=== PATIENT | male | born 1930 | race Caucasian/White ===

== ENCOUNTER 2016-10-25 23:15 | Inpatient (IN) | payer MEDICARE ==
--- NOTE | ~2016-10-25 | HP ---
History And Physical [address] [place]. [address] NAME: EFE PATEL : 29 STATUS : ADM IN PAT#: [id number] AGE: 85 ADM/REG DATE : 10/26/16 MR#: [id number] REPORT SERV DATE: 10/26/16 DICTATED BY: YOSEF CABEZAS DATE: 10/26/16 REPORT STATUS : Draft TRANSCRIBED BY: SILVIA DATE: 10/26/16 DATE OF ADMISSION: 10/26/2016 CHIEF COMPLAINT: Acute right knee pain status post two falls. HISTORY OF PRESENT ILLNESS: This is an 85-year-old male with a past medical history of atrial fibrillation, on chronic warfarin; hypothyroidism; also history of bradycardia, status post pacemaker, being followed by [facility]. The patient was ambulating in a parking lot and tripped over a parking space separator cement block and fell onto his right side including his right knee and injuring it. The patient returned home and his knee gave out while he was ambulating in the basement and the patient fell backwards onto his back and hit his head on the basement floor. The patient denies any syncope. No lightheadedness. No dizziness. He has no chest pain. No shortness of breath. He was seen in the ER, seen by Oren Dailey who ordered an x-ray of his right knee revealing an acute right patellar fracture. Also, the patient had a CT of the brain that showed no acute intracranial hemorrhage or intracranial pathology but the patient does have a right occipital scalp hematoma but no cranial fracture. REVIEW OF SYSTEMS: No diplopia. No nausea or vomiting. Denies any headaches. No subjective fever or chills. No abdominal pain. Positive knee pain. No lightheadedness. No dizziness. No loss of consciousness. PAST MEDICAL HISTORY: Chronic atrial fibrillation, on chronic anticoagulation with warfarin; hypothyroidism; hypertension; and bradycardia, status post pacemaker. PAST SURGICAL HISTORY: Cholecystectomy, pacemaker placement, and bilateral cataracts. FAMILY HISTORY: Type 2 diabetes and hypertension. ALLERGIES: TO CODEINE. SOCIAL HISTORY: No tobacco, alcohol, or illicit drugs and is the caregiver for his . HOME MEDICATIONS: Levothyroxine 50 mcg p.o. daily, allopurinol 100 mg p.o. b.i.d., ascorbic acid at bedtime, aspirin 81 mg p.o. daily, atenolol 50 mg p.o. q.a.m., furosemide 40 mg p.o. b.i.d., vitamin B12, potassium chloride 10 mEq p.o. daily, Flomax 0.4 mg p.o. daily, and warfarin 2.5 mg p.o. every evening. PHYSICAL EXAMINATION: VITAL SIGNS: Temp of 98.5, blood pressure 137/74 with a pulse of 72, respiration of 20, and saturating 97% on room air. GENERAL: The patient is alert and oriented x3, currently in no distress. HEENT EXAM: Pupils equal, round, and reactive to light. Extraocular muscles are intact. Anicteric sclerae. NECK: Currently supple. History And Physical [address] [address] NAME: EFE PATEL : 29 STATUS : ADM IN [facility]#: [id number] AGE: 85 ADM/REG DATE : 10/26/16 MR#: [id number] REPORT SERV DATE: 10/26/16 DICTATED BY: YOSEF CABEZAS DATE: 10/26/16 REPORT STATUS : Draft TRANSCRIBED BY: SILVIA DATE: 10/26/16 CARDIOVASCULAR: S1, S2. Currently regular rate and rhythm. No appreciated rubs or gallops. No JVD. RESPIRATORY: Clear to auscultation bilaterally. No wheezes or crackles. No signs of tachypnea. ABDOMEN: Positive bowel sounds. Soft, nontender. No rebound. No fluid wave. No distention. EXTREMITIES: Warm 2+ pulse with trace of edema of the left lower extremity and 1+ pitting edema of the right lower extremity. A laceration of the right knee. Tender to palpation of the right knee. Some external rotation of the right lower extremity. SKIN: Laceration of the right knee that is superficial and a superficial laceration of the right elbow. LABS: Sodium 141, potassium 4.8 with a chloride of 106, bicarb of 28, BUN of 25 with a creatinine 1.25 with a glucose of 122, albumin of 3.3, T-bilirubin of 1.1, alkaline phosphatase 62, ALT of 14, AST is 21. White count of 10.7 with a hemoglobin of 9.9, platelet count of 161. INR of 2.6. ASSESSMENT AND PLAN: 1. Acute right hip patellar fracture, status post fall x2. Will consult Orthopedic Surgery. Also, we will order a preop EKG to be followed by attending physician in the morning. Also, we will follow up with pending radiographic studies that are currently pending at this time including a CT of the cervical spine and hip. 2. Chronic atrial fibrillation. The patient will require FFP for therapeutic INR for surgery and to be restarted on warfarin by primary attending. 3. Hypothyroidism. 4. Hypertension. The patient will be followed by my colleague, who will attend to this patient's care. MELO/MODL Yosef Cabezas M.D. / [id number] CC: Aundrea Shearer M.D.
--- NOTE | ~2016-10-25 | HP ---
History And Physical [address] [place]. [address] NAME: EFE PATEL : 29 STATUS : ADM IN [facility]#: [id number] AGE: 85 ADM/REG DATE : 10/26/16 MR#: [id number] REPORT SERV DATE: 10/27/16 DICTATED BY: EFE RADFORD DATE: 10/26/16 REPORT STATUS : Draft TRANSCRIBED BY: MODL DATE: 10/26/16 DATE OF ADMISSION: 10/26/2016 CHIEF COMPLAINT: Right knee pain. HISTORY: This is an 85-year-old male, who came out of a restaurant, fell last evening, injured his right knee, and "skinned" his right elbow. No pain or injury elsewhere until he got home, and fell and "banged his head" according to his family. They said he was doing fine until he got some morphine over this afternoon, has been confused and somnolent since that time. He had CT scan workup to rule out a subdural hematoma or any other intracranial trauma and also extensive workup with an admission by a hospitalist earlier today. ALLERGIES: CODEINE. MEDICATIONS: See chart. PAST MEDICAL HISTORY: Cataracts, hearing loss, myopia, presbyopia, dysrhythmias, hypercholesterolemia, pacemaker, arthritis, and "prostate problems." PAST SURGICAL HISTORY: Colonoscopy, cholecystectomy, pacemaker in 2007, bilateral cataracts. SOCIAL HISTORY: No cigarettes, alcohol, or illicit drug use. FAMILY HISTORY: No anesthetic complications. REVIEW OF SYSTEMS: As above. PHYSICAL EXAMINATION: GENERAL: He is somnolent and minimally responsive, but breathing comfortably. HEENT: Atraumatic, normocephalic. NECK: Supple. CHEST: Symmetric. Does not appear to be tender. EXTREMITIES: Both upper extremities without acute trauma except for superficial abrasion, right elbow. Left lower extremity benign. Right knee, obvious effusion. Superficial abrasion. SKIN: Otherwise intact. Compartment supple. 2+ pulses. NEURO: He is unable to cooperate with the exam. X-RAY: Transverse, completely displaced patellar fracture. ASSESSMENT: 1. Transverse patellar fracture. 2. Mental status changes with previous workup and negative head CT. PLAN: I had a lengthy discussion with the family. He does have a fever now. Had him History And Physical [address] [place] [address] NAME: EFE PATEL : 29 STATUS : ADM IN PAT#: [id number] AGE: 85 ADM/REG DATE : 10/26/16 MR#: [id number] REPORT SERV DATE: 10/27/16 DICTATED BY: EFE RADFORD DATE: 10/26/16 REPORT STATUS : Draft TRANSCRIBED BY: MODL DATE: 10/26/16 thoroughly reviewed with Anesthesia. Discussed risks, benefits, etc, and the patient's family wishes to proceed. WTB/MODL Duglas Radford M.D. / [id number] CC: Aundrea Iraheta M.D.
--- NOTE | ~2016-10-25 | OP ---
Record Of Operation [facility] [address] [place]. [address] NAME: EFE PATEL : 29 STATUS : DIS IN PAT#: [id number] AGE: 85 ADM/REG DATE : 10/26/16 MR#: [id number] REPORT SERV DATE: 10/30/16 DICTATED BY: EFE SILVER DATE: 10/30/16 REPORT STATUS : Draft TRANSCRIBED BY: MODL DATE: 10/30/16 DATE OF PROCEDURE: 10/26/2016 PREOPERATIVE DIAGNOSIS: Right transverse patella fracture. POSTOPERATIVE DIAGNOSIS: Right transverse patella fracture, completely displaced. PROCEDURE: ORIF. SURGEON: Duglas Silver M.D. [employer] INSTRUCTOR: See chart. DESCRIPTION OF PROCEDURE: The patient was taken to the operating room and placed supine on the table in normal fashion without any incident. General anesthetic was induced per the anesthesiologist. The patient was carefully positioned, padded, prepped, and draped in normal sterile fashion. Sharp dissection was made through a longitudinal midline incision with electrocautery through the fat. Hematoma was decompressed. The fracture fragments were cleaned up and approximated. I carefully palpated it intra-articularly through a medial arthrotomy by holding anatomic reduction. Two guidewires were placed from the 4 set across the fracture. This was followed by drilling in the near cortex distally. Screws were placed and tightened and checked on the fluoroscopic views. 18-gauge wire was passed through each one and they were double-knot tension band wired, cut, and impacted into the bone. The wound was copiously irrigated, closed and dressed sterilely. The patient was awakened and taken to the postanesthesia care unit without incident. COMPLICATIONS: None. SPECIMENS: None. ESTIMATED BLOOD LOSS: About 10 mL. WTB/MODL Duglas Silver M.D. / [id number] CC: MD Megan Jacobo M.D.
--- NOTE | ~2016-10-25 | IDS ---
Interim Discharge Summary [facility] [address] [facility] [place]. [address] NAME: EFE PATEL : 29 STATUS : ADM IN PAT#: [id number] AGE: 85 ADM/REG DATE : 10/26/16 MR#: [id number] REPORT SERV DATE: 10/29/16 DICTATED BY: ESHA LINTON DATE: 10/29/16 REPORT STATUS : Draft TRANSCRIBED BY: MODL DATE: 10/29/16 ADMISSION DATE: 10/26/2016 DISCHARGE DATE: PROBLEM LIST: 1. Right patella fracture status post open reduction and internal fixation. The patient will need a rehab. 2. Chronic atrial fibrillation with chronic Coumadin use. 3. Chronic kidney disease, stable. 4. BPH, stable. 5. Acute blood loss anemia, status post one unit transfusion. 6. Status post mechanical fall. DIE TRIPPER: Dr. Radford. HISTORY OF PRESENT ILLNESS: This is an 85-year-old gentleman who was brought to the hospital after he had a mechanical fall twice at home. Please see dictated H and P. HOSPITAL COURSE: He was admitted to the hospital with patellar fracture and was taken to the OR and had a fixation done with Dr. Radford. Postoperatively, he had one unit of blood transfusion, stable. I am waiting for the rehab placement. The patient is very anxious to go home, but he is requiring intensive rehabilitation. I had a long conversation with this patient regarding disposition and the patient agreed to go to the rehab and the foster care case manager is arranging the rehab place. EKL/SILVIA Esha Linton M.D. / [id number] CC: Aundrea Iraheta M.D.
--- NOTE | ~2016-10-25 | DS ---
Discharge Summary [address] [place]. [address] NAME: ERAN PATEL : 29 STATUS : DIS IN PAT#: [id number] AGE: 85 ADM/REG DATE : 10/26/16 MR#: [id number] REPORT SERV DATE: 10/31/16 DICTATED BY: DATE: REPORT STATUS : Draft TRANSCRIBED BY: MODL DATE: 10/30/16 ADMISSION DATE: 10/26/2016 DISCHARGE DATE: 10/30/2016 DISCHARGE DIAGNOSES: 1. Recent fall with open reduction and internal fixation right patella on 10/26/2016. 2. Acute kidney injury with chronic kidney disease. 3. Chronic atrial fibrillation on Coumadin therapy. 4. Acute blood loss anemia, postoperative. 5. Status post mechanical fall. 6. Benign prostatic hyperplasia. 7. Hypothyroid. 8. Hypertension. CONSULT: Ortho, Dr. Radford. PROCEDURES AND IMAGIN. 10/25/2016, CT of the brain without contrast showed no acute intracranial hemorrhage or other pathology. Superior right occipital scalp hematoma with no underlying cranial fracture. 2. 10/26/2016, CT of the pelvis without contrast showed no acute fracture and soft tissue edema on the right hip consistent with the hematoma. 3. 10/26/2016, CT of the cervical spine showed degenerative changes with mild compression deformity of superior endplate of C7 of undetermined age. 4. 10/25/2016, portable chest x-ray showed mild cardiomegaly with no acute abnormality. 5. 10/25/2016, x-ray of the right knee showed fracture of patella with 6 cm of separation of the fracture fragments with joint effusion and superficial soft tissue swelling. 6. 10/25/2016, right elbow x-ray showed no elbow fracture or joint effusion. 7. 10/26/2016, chest x-ray showed endotracheal tube in good position and some left lower lobe atelectasis with pacemaker identified. HOSPITAL COURSE: This is an 85-year-old white male who was brought to the hospital after he had mechanical fall twice at home. Please see initial H and P by Dr. Eran Radford and please see interim discharge summary by Dr. Esha Linton. I assumed medical management of this patient upon 10/30/2016. The patient is status post day #4 ORIF of the right knee. The patient has had PT and OT eval. It is recommended for him to go for inpatient rehab. Of note, the patient does have a paced rhythm and has a history of chronic atrial fibrillation for which he is on warfarin therapy. His current INR is 2.2. The patient is also on atenolol to assist with rate control. During his stay, the patient did have an acute kidney injury with creatinine elevation to 1.46, but is currently 1.10. The patient will be dismissed on sliding scale insulin for this. The patient experienced acute blood loss anemia, status post surgery and his hemoglobin is 8.5. The patient's hypertension has been stable on atenolol and Lasix. The patient did have several instances of hypotension immediately postoperative. The patient's baseline has been stable between 120s to 140s over 50s to 70s in the last 24-48 hours. Discharge Summary [address] [address] NAME: ERAN PATEL : 29 STATUS : DIS IN PAT#: [id number] AGE: 85 ADM/REG DATE : 10/26/16 MR#: [id number] REPORT SERV DATE: 10/31/16 DICTATED BY: DATE: REPORT STATUS : Draft TRANSCRIBED BY: SILVIA DATE: 10/30/16 PHYSICAL EXAMINATION: VITAL SIGNS: The patient's blood pressure is 149/70, O2 saturation is 96% on room air, respirations are 20, temp is 98.2, heart rate is 73, paced rhythm. HEENT: Head is atraumatic, normocephalic. Pupils are equal, round, reactive to light and accommodation. Sclerae are clear and nonicteric. No palpable lymphadenopathy. NECK: Neck is supple with no obvious thyromegaly or lymphadenopathy. Neck veins are flat. CARDIAC: The patient is in a paced rhythm. LUNGS: Clear to auscultation with normal respiratory effort. GI: Abdomen is soft, and nontender with active bowel sounds in all four quadrants. The patient's last bowel movement was 10/29/2016. No palpable organomegaly. EXTREMITIES: No significant edema, clubbing, or cyanosis. Dorsalis pedis and posterior tibials pulses are palpable bilaterally. The patient does have mild edema above and below his right joint knee immobilizer. MUSCULOSKELETAL: The patient moves all extremities x4. He is ambulatory with assistance and walker. SKIN: Skin is intact. Warm and dry with normal color and turgor. NEUROPSYCH: The patient is alert and oriented x3, pleasant cooperative. Cranial nerves II through XII are grossly intact. No apparent anxiety or depression. DISCHARGE MEDICATIONS: Allopurinol 100 mg twice daily, aspirin 81 mg daily, Tenormin 50 mg daily, vitamin B12 a 1000 mg daily, Lasix 40 mg p.o. twice daily, levothyroxine 50 mcg daily, Flomax 0.4 mg daily, Coumadin 2.5 mg daily, Tylenol 650 mg p.o. or p.r. q.4 hours p.r.n. temp greater than 101.5 or mild pain, Mylanta 30 mL p.r.n. ingestion, Dulcolax tablets 50 mg p.o. p.r.n. constipation, hydrocodone 5/325 mg tablets one q.6 hours p.r.n. pain, milk of magnesia 30 mL p.r.n. daily, Zofran 4 mg p.o. or sublingual every four hours as needed, potassium 10 mEq twice daily, vitamin C 1000 mg daily. ALLERGIES: CODEINE. FOLLOWUP: The patient is to follow up with his PCP in 7 to 10 days after discharge from rehab. Should the patient develop any more confusion or have any increased imbalance, he is to call his PCP or present to the ER. DISCHARGE: Discharge took me approximately 35 minutes being spent coordinating discharge care of this patient including [id number] encounter and summarization of the discharge. CLIFTON/ZEL Bree Lan NP / [id number] CC: Corwin Horton MD Discharge Summary [address] [address] NAME: ERAN PATEL : 29 STATUS : DIS IN PAT#: [id number] AGE: 85 ADM/REG DATE : 10/26/16 MR#: [id number] REPORT SERV DATE: 10/31/16 DICTATED BY: DATE: REPORT STATUS : Draft TRANSCRIBED BY: MODL DATE: 10/30/16 Megan Nguyen M.D.
[~2016-10-25 23:15] MED LIST: ASAB PO; ATEN50 PO; C25 PO; CYANO1000T PO; FLOMAX4 PO; KDUR10 PO; KLOR-CON M1010 MEQ PO; L40 PO; METHOC500B PO; P5 PO; PRIN5 PO; SYN.05 PO; VITAMIN B-121000 MC1 SL; VITAMIN D400 UNI1 PO; VITC500 PO; Z100 PO; ZAROX2.5B PO; ZYRTEC ALLGY10 MG PO
[2016-10-25 23:35] LABS: BASOPHILS 0.3 %; BASOPHILS ABSOLUTE 0.03 10/3/uL (0.0-0.16); EOSINOPHILS 1.3 %; EOSINOPHILS ABSOLUTE 0.14 10/3/uL (0.0-0.53); HEMATOCRIT 29.5 % (40.0-51.0); HEMOGLOBIN 9.9 g/dL (13.6-17.8); IMMATURE GRANULOCYTES 0.6 %; IMMATURE GRANULOCYTES ABSOLUTE 0.06 10/3/uL (0.0-0.11); LYMPHOCYTES 11.4 %; LYMPHOCYTES ABSOLUTE 1.22 10/3/uL (0.67-4.30); MANUAL DIFF NO %; MEAN CORPUS HGB CONC 33.6 g/dL (32.0-36.0); MEAN CORPUSCULAR HEMOGLOB 30.3 pg (26.0-34.0); MEAN CORPUSCULAR VOLUME 90.2 fL (80-100); MEAN PLATELET VOLUME 9.7 fL (9.2-13.0); MONOCYTES 7.3 %; MONOCYTES ABSOLUTE 0.78 10/3/uL (0.21-1.20); NEUTROPHILS 79.1 %; NEUTROPHILS ABSOLUTE 8.49 10/3/uL (2.02-8.40); PLATELET COUNT 161 10/3/uL (150-400); RBC DISTRIBUTION WIDTH 16.9 % (12.0-16.0); RED CELL COUNT 3.27 10/6/uL (4.7-6.1); WHITE BLOOD CELLS 10.7 10/3/uL (4.5-10.5)
[2016-10-25 23:45] LABS: INTERNATIONAL NORMAL RATI 2.6 UNITS (-); PARTIAL THROMBO TIME 42.6 SEC (22.5-37.2)
[2016-10-25 23:50] LABS: ALKALINE PHOSPHATASE 62 U/L (45-117); BUN (BLOOD UREA NITROGEN) 25 MG/DL (6-23); CALCIUM, SERUM 8.1 MG/DL (8.5-10.4); CHLORIDE, SERUM 106 MMOL/L (96-112); CO2 (CARBON DIOXIDE) 28 MMOL/L (24-34); CREATININE 1.25 MG/DL (0.70-1.30); GFR AFRICAN AMERICAN 60 ML/MIN (>=60); GFR NON AFRICAN AMERICAN 52 ML/MIN (>=60); PROTIME (NOT ORD) 27.6 SEC (12.0-14.5); SGOT(AST) 21 U/L (5-40); SGPT(ALT) 14 U/L (5-65); SODIUM, SERUM 141 MMOL/L (135-148); TOTAL PROTEIN 6.5 G/DL (6.0-8.5)
[2016-10-25 23:51] LABS: ALBUMIN 3.3 G/DL (3.5-5.0); GLOBULIN 3.2 G/DL (2.5-4.1); GLUCOSE, SERUM 122 MG/DL (60-99); TOTAL BILIRUBIN 1.1 MG/DL (0-1.2)
[2016-10-26 03:28] LABS: BASOPHILS 0.4 %; BASOPHILS ABSOLUTE 0.03 10/3/uL (0.0-0.16); EOSINOPHILS 1.1 %; EOSINOPHILS ABSOLUTE 0.09 10/3/uL (0.0-0.53); HEMATOCRIT 27.6 % (40.0-51.0); HEMOGLOBIN 9.2 g/dL (13.6-17.8); IMMATURE GRANULOCYTES 0.5 %; IMMATURE GRANULOCYTES ABSOLUTE 0.04 10/3/uL (0.0-0.11); LYMPHOCYTES 12.8 %; LYMPHOCYTES ABSOLUTE 1.08 10/3/uL (0.67-4.30); MEAN CORPUS HGB CONC 33.3 g/dL (32.0-36.0); MEAN CORPUSCULAR HEMOGLOB 30.3 pg (26.0-34.0); MEAN CORPUSCULAR VOLUME 90.8 fL (80-100); MEAN PLATELET VOLUME 8.9 fL (9.2-13.0); MONOCYTES 5.7 %; MONOCYTES ABSOLUTE 0.48 10/3/uL (0.21-1.20); NEUTROPHILS 79.5 %; NEUTROPHILS ABSOLUTE 6.71 10/3/uL (2.02-8.40); PLATELET COUNT 140 10/3/uL (150-400); RBC DISTRIBUTION WIDTH 17.1 % (12.0-16.0); RED CELL COUNT 3.04 10/6/uL (4.7-6.1); WHITE BLOOD CELLS 8.4 10/3/uL (4.5-10.5)
[2016-10-26 03:29] LABS: MANUAL DIFF NO %
[2016-10-26 03:44] LABS: BUN (BLOOD UREA NITROGEN) 25 MG/DL (6-23); CALCIUM, SERUM 8.2 MG/DL (8.5-10.4); CHLORIDE, SERUM 109 MMOL/L (96-112); CO2 (CARBON DIOXIDE) 28 MMOL/L (24-34); CREATININE 1.22 MG/DL (0.70-1.30); GFR AFRICAN AMERICAN 62 ML/MIN (>=60); GFR NON AFRICAN AMERICAN 53 ML/MIN (>=60); GLUCOSE, SERUM 118 MG/DL (60-99); POTASSIUM, SERUM 3.9 MMOL/L (3.5-5.3); SODIUM, SERUM 144 MMOL/L (135-148)
[2016-10-26 11:14] LABS: INTERNATIONAL NORMAL RATI 1.9 UNITS (-)
[2016-10-27 06:38] LABS: HEMOGLOBIN 7.8 g/dL (13.6-17.8)
[2016-10-27 06:39] LABS: HEMATOCRIT 23.8 % (40.0-51.0)
[2016-10-27 06:44] LABS: INTERNATIONAL NORMAL RATI 1.8 UNITS (-); PROTIME (NOT ORD) 20.4 SEC (12.0-14.5)
[2016-10-27 06:49] LABS: CALCIUM, SERUM 7.7 MG/DL (8.5-10.4); CHLORIDE, SERUM 110 MMOL/L (96-112); CO2 (CARBON DIOXIDE) 26 MMOL/L (24-34); CREATININE 1.46 MG/DL (0.70-1.30); GFR AFRICAN AMERICAN 50 ML/MIN (>=60); GFR NON AFRICAN AMERICAN 43 ML/MIN (>=60); GLUCOSE, SERUM 123 MG/DL (60-99); POTASSIUM, SERUM 4.4 MMOL/L (3.5-5.3); SODIUM, SERUM 145 MMOL/L (135-148)
[2016-10-27 06:50] LABS: BUN (BLOOD UREA NITROGEN) 31 MG/DL (6-23)
[2016-10-28 05:53] LABS: BASOPHILS 0.1 %; BASOPHILS ABSOLUTE 0.01 10/3/uL (0.0-0.16); EOSINOPHILS 0 %; HEMATOCRIT 26.5 % (40.0-51.0); HEMOGLOBIN 9.1 g/dL (13.6-17.8); IMMATURE GRANULOCYTES 0.5 %; IMMATURE GRANULOCYTES ABSOLUTE 0.06 10/3/uL (0.0-0.11); LYMPHOCYTES 6.8 %; LYMPHOCYTES ABSOLUTE 0.76 10/3/uL (0.67-4.30); MANUAL DIFF NO %; MEAN CORPUS HGB CONC 34.3 g/dL (32.0-36.0); MEAN CORPUSCULAR HEMOGLOB 31.3 pg (26.0-34.0); MEAN CORPUSCULAR VOLUME 91.1 fL (80-100); MEAN PLATELET VOLUME 9.7 fL (9.2-13.0); MONOCYTES 5.8 %; MONOCYTES ABSOLUTE 0.65 10/3/uL (0.21-1.20); NEUTROPHILS 86.8 %; NEUTROPHILS ABSOLUTE 9.64 10/3/uL (2.02-8.40); PLATELET COUNT 152 10/3/uL (150-400); RBC DISTRIBUTION WIDTH 16.8 % (12.0-16.0); RED CELL COUNT 2.91 10/6/uL (4.7-6.1); WHITE BLOOD CELLS 11.1 10/3/uL (4.5-10.5)
[2016-10-28 05:54] LABS: INTERNATIONAL NORMAL RATI 1.7 UNITS (-)
[2016-10-28 05:59] LABS: CALCIUM, SERUM 7.8 MG/DL (8.5-10.4); CHLORIDE, SERUM 108 MMOL/L (96-112); CO2 (CARBON DIOXIDE) 26 MMOL/L (24-34); GFR AFRICAN AMERICAN 52 ML/MIN (>=60); GFR NON AFRICAN AMERICAN 45 ML/MIN (>=60); GLUCOSE, SERUM 141 MG/DL (60-99); POTASSIUM, SERUM 4.5 MMOL/L (3.5-5.3); SODIUM, SERUM 143 MMOL/L (135-148)
[2016-10-28 06:00] LABS: BUN (BLOOD UREA NITROGEN) 40 MG/DL (6-23)
[2016-10-29 05:20] LABS: BASOPHILS 0.2 %; BASOPHILS ABSOLUTE 0.02 10/3/uL (0.0-0.16); EOSINOPHILS ABSOLUTE 0.11 10/3/uL (0.0-0.53); HEMATOCRIT 25.6 % (40.0-51.0); HEMOGLOBIN 8.5 g/dL (13.6-17.8); IMMATURE GRANULOCYTES 0.8 %; IMMATURE GRANULOCYTES ABSOLUTE 0.08 10/3/uL (0.0-0.11); LYMPHOCYTES 13.7 %; LYMPHOCYTES ABSOLUTE 1.44 10/3/uL (0.67-4.30); MEAN CORPUS HGB CONC 33.2 g/dL (32.0-36.0); MEAN CORPUSCULAR HEMOGLOB 30.9 pg (26.0-34.0); MEAN CORPUSCULAR VOLUME 93.1 fL (80-100); MONOCYTES 6.5 %; MONOCYTES ABSOLUTE 0.68 10/3/uL (0.21-1.20); NEUTROPHILS 77.8 %; NEUTROPHILS ABSOLUTE 8.21 10/3/uL (2.02-8.40); PLATELET COUNT 168 10/3/uL (150-400); RBC DISTRIBUTION WIDTH 17.5 % (12.0-16.0); RED CELL COUNT 2.75 10/6/uL (4.7-6.1); WHITE BLOOD CELLS 10.5 10/3/uL (4.5-10.5)
[2016-10-29 05:26] LABS: INTERNATIONAL NORMAL RATI 1.9 UNITS (-); PROTIME (NOT ORD) 21.7 SEC (12.0-14.5)
[2016-10-29 05:32] LABS: BUN (BLOOD UREA NITROGEN) 41 MG/DL (6-23); CHLORIDE, SERUM 107 MMOL/L (96-112); CO2 (CARBON DIOXIDE) 25 MMOL/L (24-34); CREATININE 1.17 MG/DL (0.70-1.30); GFR AFRICAN AMERICAN 65 ML/MIN (>=60); GFR NON AFRICAN AMERICAN 56 ML/MIN (>=60); POTASSIUM, SERUM 3.8 MMOL/L (3.5-5.3); SODIUM, SERUM 142 MMOL/L (135-148)
[2016-10-29 05:34] LABS: GLUCOSE, SERUM 101 MG/DL (60-99)
[2016-10-29 05:48] LABS: MANUAL DIFF NO %
[2016-10-30 04:53] LABS: INTERNATIONAL NORMAL RATI 2.2 UNITS (-); PROTIME (NOT ORD) 24.5 SEC (12.0-14.5)
[2016-10-30 09:38] LABS: BUN (BLOOD UREA NITROGEN) 36 MG/DL (6-23); CALCIUM, SERUM 7.9 MG/DL (8.5-10.4); CHLORIDE, SERUM 104 MMOL/L (96-112); CO2 (CARBON DIOXIDE) 28 MMOL/L (24-34); GFR AFRICAN AMERICAN 70 ML/MIN (>=60); GFR NON AFRICAN AMERICAN 60 ML/MIN (>=60); GLUCOSE, SERUM 111 MG/DL (60-99); POTASSIUM, SERUM 4.3 MMOL/L (3.5-5.3); SODIUM, SERUM 140 MMOL/L (135-148)
== END 2016-10-30 13:12 | DRG 516 ==
LOC: ER 23:15 → 3JRC 10-26 00:56
PROVIDERS: Emergency Medicine; Internal Medicine; Nurse Practitioner Acute Care; Specialist
PROC: 0QSD04Z Reposition Right Patella with Internal Fixation Device, Open Approach (ICD-10-PCS; 2016-10-26)
PROC: 3E0T3CZ (ICD-10-PCS; 2016-10-26)
PROC: 30233N1 Transfusion of Nonautologous Red Blood Cells into Peripheral Vein, Percutaneous Approach (ICD-10-PCS; principal; 2016-10-26 16:45)
DX: S82.031A Displaced transverse fracture of right patella, initial encounter for closed fracture (principal); D62 Acute posthemorrhagic anemia; N17.9 Acute kidney failure, unspecified; I48.2 Chronic atrial fibrillation; W17.89XA Other fall from one level to another, initial encounter; Y93.9 Activity, unspecified; Y92.511 Restaurant or cafe as the place of occurrence of the external cause; Z88.5 Allergy status to narcotic agent; E78.00 Pure hypercholesterolemia, unspecified; Z95.0 Presence of cardiac pacemaker; M19.90 Unspecified osteoarthritis, unspecified site; Z90.49 Acquired absence of other specified parts of digestive tract; Z98.890 Other specified postprocedural states; Z79.01 Long term (current) use of anticoagulants; E03.9 Hypothyroidism, unspecified; Z82.49 Family history of ischemic heart disease and other diseases of the circulatory system; Z83.3 Family history of diabetes mellitus; N40.0 Benign prostatic hyperplasia without lower urinary tract symptoms; N18.9 Chronic kidney disease, unspecified; I12.9 Hypertensive chronic kidney disease with stage 1 through stage 4 chronic kidney disease, or unspecified chronic kidney disease; Z79.82 Long term (current) use of aspirin; Z79.899 Other long term (current) drug therapy
CPT/HCPCS: 36415; 70450; 71010; 72125; 72192; 73080-RT; 73560-RT; 76000; 80048; 80053; 83735; 85014; 85018; 85025; 85610; 85730; 86850; 86900; 86901; 86920; 93005; 94640; 96372; 97110-GO; 97110-GP; 97116-GP; 97162-GP; 97166-GO; 97530-GP; 99285; A9270-GY; C1713; G8987-CK-GO; G8988-CJ-GO; J0690; J1940; J2370; J2795; J2800; J3010; P9016; P9017; P9059